=== PATIENT | male | born 2005 | race Caucasian/White ===

== ENCOUNTER 2023-05-10 15:29 | Emergency (ER) | payer BC ==
[~2023-05-10] VITALS: Ht 177 cm; Wt 81.6 kg
[2023-05-10] MEDS ORDERED: LACTATED RINGERS 1,000 ML 1,000 ML IV STA (15:52)
[2023-05-10 16:05] LABS: BASOPHILS % (AUTO) 1 % (0-10); EOSINOPHILS # (AUTO) 0.1 10^3/uL (0.0-0.3); EOSINOPHILS % (AUTO) 2 % (0-10); HEMATOCRIT 47 % (40-54); HEMOGLOBIN 16.4 g/dL (13.3-17.7); LYMPHOCYTES # (AUTO) 1.9 10^3/uL (1.0-4.0); LYMPHOCYTES % (AUTO) 21 % (12-44); MEAN CORPUSCULAR HEMOGLOBIN 31 pg (25-34); MEAN CORPUSCULAR HGB CONC 35 g/dL (32-36); MEAN CORPUSCULAR VOLUME 88 fL (80-99); MEAN PLATELET VOLUME 11.1 fL (9.0-12.2); MONOCYTES # (AUTO) 1.2 10^3/uL (0.0-1.0); MONOCYTES % (AUTO) 14 % (0-12); NEUTROPHILS # (AUTO) 5.5 10^3/uL (1.8-7.8); NEUTROPHILS % (AUTO) 62 % (42-75); PLATELET COUNT 220 10^3/uL (130-400); WHITE BLOOD COUNT 8.8 10^3/uL (4.3-11.0)
[2023-05-10 16:08] LABS: ALBUMIN 4.5 GM/DL (3.2-4.5); POTASSIUM 3.8 MMOL/L (3.6-5.0)
[2023-05-10 16:10] LABS: CALCIUM 9.8 MG/DL (8.5-10.1)
[2023-05-10 16:11] LABS: TOTAL PROTEIN 7.4 GM/DL (6.4-8.2)
[2023-05-10 16:13] LABS: BILIRUBIN,TOTAL 0.5 MG/DL (0.1-1.0)
[2023-05-10 16:14] LABS: CREATININE SERUM 1.06 MG/DL (0.60-1.30)
--- NOTE | 2023-05-10 16:23 | ED General ---
General Chief Complaint: Cardiac/General Problems Stated Complaint: RAPID HEART RATE Nursing Triage Note: PT STATES HE WAS DOING THE TRAMPOLINE CHALLENGE WITH HIS FRATERNITY AND AFTER JUMPING FOR 10 MINS HIS HEART RATE INCREASED, FELT DIZZY, AND FATIGUED. Source of Information: Patient Exam Limitations: No Limitations History of Present Illness Date Seen by Provider: May 10, 2023 Time Seen by Provider: 15:50 Initial Comments Here with report of racing heart and feeling dizzy after having to jump on a trampoline for 10 minutes in the heat outside. He is supposed to be doing an event for the [employer] in which she is supposed to jump for a couple hours each day but the temperatures exceeding 100 degrees currently. Feels better now that he is in side but states his heart was racing quite a bit earlier. Denies recen t illness, current nausea or diarrhea, fever or chills or upper respiratory illness. Reports sweating quite a bit during the event. Timing/Duration: 1/2 Hour Severity: Moderate Associated Systoms: No Cough, No Fever/Chills, No Nausea/Vomiting, No Shortness of Air; Weakness Allergies and Home Medications Allergies Coded Allergies: No Known Drug Allergies (Unverified , 05/10/23) Patient Home Medication List Home Medication List Reviewed: Yes Review of Systems Review of Systems Constitutional: see HPI; No chills, No fever EENTM: No nose congestion, No throat pain Respiratory: No cough, No short of breath Cardiovascular: No edema; palpitations Gastrointestinal: nausea; No vomiting Genitourinary: no symptoms reported Musculoskeletal: no symptoms reported Psychiatric/Neurological: Headache Past Rteugxh-Ladmal-[id number] Hx Patient Social History Tobacco Use?: No Substance use?: No Past Medical History Surgeries: No Respiratory: No Cardiac: No Neurological: No Physical Exam Vital Signs Vital Signs - First Documented 05/10/23 15:35 Temp 36.0 Pulse 81 Resp 16 B/P (MAP) 144/85 (104) Pulse Ox 96 O2 Delivery Room Air Capillary Refill : Less Than 3 Seconds Height, Weight, BMI Height: '" Weight: lbs. oz. kg; 26.00 BMI Method: General Appearance: No Apparent Distress, WD/WN HEENT: PERRL/EOMI, Pharynx Normal Neck: Non Tender, Supple Respiratory: Lungs Clear, Normal Breath Sounds Cardiovascular: Regular Rate, Rhythm, No Murmur Gastrointestinal: Non Tender, Soft Extremity: Normal Range of Motion, Non Tender Neurologic/Psychiatric: Alert, Oriented x3 Skin: Normal Color, Warm/Dry, Other (Patient is very sweaty but improving.) Progress/Results/Core Measures Suspected Sepsis SIRS Temperature: Pulse: 81 Respiratory Rate: 16 Laboratory Tests 05/10/23 15:40: White Blood Count 8.8 Blood Pressure 144 /85 Mean: 104 Laboratory Tests 05/10/23 15:40: Creatinine 1.06, Platelet Count 220, Total Bilirubin 0.5 Results/Orders Lab Results Laboratory Tests Test 05/10/23 15:40 Range/Units White Blood Count 8.8 4.3-11.0 10^3/uL Red Blood Count 5.33 4.30-5.52 10^6/uL Hemoglobin 16.4 13.3-17.7 g/dL Hematocrit 47 40-54 % Mean Corpuscular Volume 88 80-99 fL Mean Corpuscular Hemoglobin 31 25-34 pg Mean Corpuscular Hemoglobin Concent 35 32-36 g/dL Red Cell Distribution Width 12.4 10.0-14.5 % Platelet Count 220 130-400 10^3/uL Mean Platelet Volume 11.1 9.0-12.2 fL Immature Granulocyte % (Auto) 1 % Neutrophils (%) (Auto) 62 42-75 % Lymphocytes (%) (Auto) 21 12-44 % Monocytes (%) (Auto) 14 H 0-12 % Eosinophils (%) (Auto) 2 0-10 % Basophils (%) (Auto) 1 0-10 % Neutrophils # (Auto) 5.5 1.8-7.8 10^3/uL Lymphocytes # (Auto) 1.9 1.0-4.0 10^3/uL Monocytes # (Auto) 1.2 H 0.0-1.0 10^3/uL Eosinophils # (Auto) 0.1 0.0-0.3 10^3/uL Basophils # (Auto) 0.0 0.0-0.1 10^3/uL Immature Granulocyte # (Auto) 0.0 0.0-0.1 10^3/uL Sodium Level 142 135-145 MMOL/L Potassium Level 3.8 3.6-5.0 MMOL/L Chloride Level 105 98-107 MMOL/L Carbon Dioxide Level 27 21-32 MMOL/L Anion Gap 10 5-14 MMOL/L Blood Urea Nitrogen 13 7-18 MG/DL Creatinine 1.06 0.60-1.30 MG/DL Estimat Glomerular Filtration Rate 104 BUN/Creatinine Ratio 12 Glucose Level 96 70-105 MG/DL Calcium Level 9.8 8.5-10.1 MG/DL Corrected Calcium 9.4 8.5-10.1 MG/DL Total Bilirubin 0.5 0.1-1.0 MG/DL Aspartate Amino Transf (AST/SGOT) 21 5-34 U/L Alanine Aminotransferase (ALT/SGPT) 21 0-55 U/L Alkaline Phosphatase 79 40-136 U/L Total Creatine Kinase 269 H 30-200 U/L Total Protein 7.4 6.4-8.2 GM/DL Albumin 4.5 3.2-4.5 GM/DL My Orders Orders - CHRIS HEREDIA MD Cbc With Automated Diff (05/10/23 15:52) Comprehensive Metabolic Panel (05/10/23 15:52) Creatine Kinase (05/10/23 15:52) Lactated Ringers (Lr 1000 Ml Iv Solution (05/10/23 15:52) Ed Iv/Invasive Line Start (05/10/23 15:52) Vital Signs/I&O 05/10/23 15:35 Temp 36.0 Pulse 81 Resp 16 B/P (MAP) 144/85 (104) Pulse Ox 96 O2 Delivery Room Air Capillary Refill : Less Than 3 Seconds Blood Pressure Mean: 104 Progress Note : Progress Note Seen and evaluated. IV, labs and EKG ordered. Labs include CBC, CMP total CK. LR 1 L bolus ordered. Monitor patient. Differential diagnosis includes dehydration and electrolyte abnormality as well as heat injury 0: Labs reviewed and CBC grossly normal with CMP and total CK slightly elevated. Feels much better after fluid bolus. Discharged home with return precautions. Patient verbalized understanding instructions and agreement with plan. ECG Initial ECG Impression Date: May 10, 2023 Initial ECG Impression Time: 15:44 Initial ECG Rate: 78 Initial ECG Rhythm: Normal Sinus Comment Sinus rhythm with short NE interval and normal axis. No evidence of ST elevation TN. Interpreted by me. Departure Impression Primary Impression: Heat exhaustion Qualified Codes: T67.5XXA - Heat exhaustion, unspecified, initial encounter Additional Impression: Dehydration Disposition: ADMITTED INPATIENT Condition: Stable Departure-Patient Inst. Decision time for Depature: 17:11 Referrals: NO,LOCAL PHYSICIAN (PCP/Family) Primary Care Physician Patient Instructions: Heat Illness ED, Dehydration, Adult (DC) Add. Discharge Instructions: All discharge instructions reviewed with patient and/or family. Voiced understanding. Plenty of fluids and eat a normal diet. Avoid the heat for the next several days. Follow-up with your doctor for recheck and further evaluation as needed in the next week. Return for worse pain, fever, vomiting, weakness, breathing problems or other concerns as needed. Work/School Note: Work Release Form Date Seen in the Emergency Department: May 10, 2023 Return to Work: May 14, 2023 Other Restrictions Listed Below: You should avoid strenuous activity in heat over the next 3 to 4 days CHRIS HEREDIA MD May 10, 2023 16:22
[2023-05-10 17:19] VITALS: BP 124/72
== END 2023-05-10 17:19 | disposition home or self-care (01) ==
LOC: ER 15:37
DX: T67.5XXA Heat exhaustion, unspecified, initial encounter (principal); E86.0 Dehydration
CPT/HCPCS: 36415; 80053; 82550; 85025; 93005